=== PATIENT | female | born 1990 | race American Indian/Alaskan Native ===

== ENCOUNTER 2017-03-28 10:13 | Emergency (ER) | payer SELFPAY ==
[2017-03-28 11:31] VITALS: BP 122/83
[2017-03-28 12:40] LABS: Basophils % (Auto) 0.2 % (0.0-1.8); Eosinophils % (Auto) 0.8 % (0.0-4.3); Hematocrit 36.8 % (30.3-42.9); Hemoglobin 12.2 gm/dl (10.1-14.3); Mean Corpuscular HGB Conc 33 % (30-34); Mean Corpuscular Hemoglobin 34 pg (28-32); Mean Corpuscular Volume 102 fl (79-97); Platelet Count 199 K/mm3 (140-440); Red Blood Count 3.59 M/mm3 (3.65-5.03); White Blood Count 5.7 K/mm3 (4.5-11.0)
[2017-03-28 13:01] LABS: Alanine Aminotransferase 8 units/L (7-56); Albumin 4.4 g/dL (3.9-5); Albumin/Globulin Ratio 1.8 %; Alkaline Phosphatase 59 units/L (35-129); Anion Gap 15 mmol/L; BUN/Creatinine Ratio 22; Blood Urea Nitrogen 11 mg/dL (7-17); Calcium 8.8 mg/dL (8.4-10.2); Carbon Dioxide 26 mmol/L (22-30); Chloride 104.4 mmol/L (98-107); Glucose 96 mg/dL (65-100); Lipase 47 units/L (13-60); Potassium 4.1 mmol/L (3.6-5.0); Sodium 141 mmol/L (137-145); Total Protein 6.8 g/dL (6.3-8.2)
--- NOTE | 2017-03-28 14:07 | Emergency Department Report ---
HPI - General Chief Complaint: Abdominal Pain Time Seen by Provider: 03/28/17 13:56 - HPI HPI: Room 39 The patient is a 26-year-old female presenting with chief complaint of abdominal pain. The patient states for the past 5 days she says sharp lower abdominal pain intermittently. The patient states she had a bowel movement the following day but it did not change the pain. The patient states that one point she thought her constipation was the cause of her abdominal pain that she took a laxative but did not have abdominal. Patient missed the nausea but denies vomiting. Patient denies dysuria, hematuria, vaginal discharge or fever. Patient currently denies abdominal pain and states that it comes and goes. Location: Lower abdomen Duration: 5 days intermittently Quality: Sharp Severity: Currently 0/10 Modifying factors: [see above] Context: [see above] Mode of transportation: Unknown ED Past Medical Hx - Past Medical History Additional medical history: vaginal delivery 11-19-2015 - Surgical History Past Surgical History?: No Additional Surgical History: t&a - Family History Family history: no significant - Social History Smoking Status: Current Every Day Smoker (1/4 pack per day) Substance Use Type: None (denies illicit drug use), Alcohol (occasional) - Medications Home Medications: Home Medications Medication Instructions Recorded Confirmed Last Taken Type Docusate Sodium [Colace] 100 mg PO BID PRN #30 capsule 03/28/17 Unknown Rx Lactulose [Cephulac] 20 gm PO QDAY PRN #90 ml 03/28/17 Unknown Rx ED Review of Systems ROS: Stated complaint: SHARP PAIN IN ABD PAIN FOR FEW DAYS Other details as noted in HPI Comment: All other systems reviewed and negative Constitutional: denies: chills, fever Eyes: denies: eye pain, eye discharge, vision change ENT: denies: ear pain, throat pain Respiratory: denies: cough, shortness of breath, wheezing Cardiovascular: denies: chest pain, palpitations Endocrine: no symptoms reported Gastrointestinal: abdominal pain, nausea, constipation. denies: vomiting, diarrhea Genitourinary: denies: urgency, dysuria, discharge Musculoskeletal: denies: back pain, joint swelling, arthralgia Skin: denies: rash, lesions Neurological: denies: headache, weakness, paresthesias Psychiatric: denies: anxiety, depression Hematological/Lymphatic: denies: easy bleeding, easy bruising Physical Exam - Physical Exam Vital Signs: Vital Signs 03/28/17 11:28 Temperature 98.3 F Pulse Rate 78 Respiratory 16 Rate Blood Pressure 122/83 O2 Sat by Pulse 100 Oximetry Physical Exam: GENERAL: The patient is well-developed well-nourished female lying on stretcher not appearing to be in acute distress. [] HEENT: Normocephalic. Atraumatic. Extraocular motions are intact. Patient has moist mucous membranes. NECK: Supple. Trachea midline CHEST/LUNGS: Clear to auscultation. There is no respiratory distress noted. HEART/CARDIOVASCULAR: Regular. There is no tachycardia. There is no gallop rub or murmur. ABDOMEN: Abdomen is soft, with mild suprapubic discomfort to palpation. There is no rebound or guarding. Patient has normal bowel sounds. There is no abdominal distention. SKIN: There is no rash. There is no edema. There is no diaphoresis. NEURO: The patient is awake, alert, and oriented. The patient is cooperative. The patient has normal speech MUSCULOSKELETAL: There is no evidence of acute injury. ED Course Vital Signs 03/28/17 11:28 Temperature 98.3 F Pulse Rate 78 Respiratory 16 Rate Blood Pressure 122/83 O2 Sat by Pulse 100 Oximetry ED Medical Decision Making - Lab Data Result diagrams: 03/28/17 12:00 03/28/17 12:00 Laboratory Tests 03/28/17 03/28/17 03/28/17 12:00 12:00 13:37 WBC 5.7 RBC 3.59 L Hgb 12.2 Hct 36.8 MCV 102 H MCH 34 H MCHC 33 RDW 13.0 L Plt Count 199 Lymph % (Auto) 19.0 [place] % (Auto) 6.9 Eos % (Auto) 0.8 Baso % (Auto) 0.2 Lymph # 1.1 L [place] # 0.4 Eos # 0.0 Baso # 0.0 Seg Neutrophils % 73.1 H Seg Neutrophils # 4.2 Sodium 141 Potassium 4.1 Chloride 104.4 Carbon Dioxide 26 Anion Gap 15 BUN 11 Creatinine 0.5 L Estimated GFR > 60 BUN/Creatinine Ratio 22 Glucose 96 Calcium 8.8 Total Bilirubin 0.50 AST 13 ALT 8 Alkaline Phosphatase 59 Total Protein 6.8 Albumin 4.4 Albumin/Globulin Ratio 1.8 Lipase 47 Urine Color Yellow Urine Turbidity Clear Urine pH 7.0 Ur Specific Crystal 1.028 Urine Protein <15 mg/dl Urine Glucose (UA) Neg Urine Ketones Neg Urine Blood Neg Urine Nitrite Neg Urine Bilirubin Neg Urine Urobilinogen 4.0 Ur Leukocyte Esterase Neg Urine WBC (Auto) 2.0 Urine RBC (Auto) 2.0 U Epithel Cells (Auto) 6.0 Urine Mucus 2+ Urine HCG, Qual Negative - Radiology Data Radiology results: image reviewed (abdominal x-ray 2 view) interpreted by me: Abdominal x-ray 2 view large amount of stool in the descending colon and rectosigmoid colon. No free air. Nonobstructive bowel gas pattern - Differential Diagnosis , UTI, small bowel obstruction, constipation Critical care attestation.: If time is entered above; I have spent that time in minutes in the direct care of this critically ill patient, excluding procedure time. ED Disposition Clinical Impression: Constipation, Abdominal pain Disposition: DC- TO HOME OR SELFCARE Is pt being admited?: No Does the pt Need Aspirin: No Condition: Stable Instructions: Abdominal Pain (ED) Additional Instructions: Return to the emergency department immediately should you develop worsening symptoms, fever, inability to tolerate food or liquid or any other concerns. 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 Please follow him for further evaluation) Time of Disposition: 15:05
[2017-03-28 14:21] LABS: Bilirubin,Urine NEG (Negative); Blood,Urine NEG (Negative); Ketones,Urine NEG (Negative); Leukocyte Esterase,Urine NEG (Negative); Mucus,Urine 2+ /HPF; Nitrite,Urine NEG (Negative); Protein,Urine <15 mg/dL mg/dL (Negative)
[2017-03-28] MEDS ORDERED: CEPHULAC PO ONE (14:57)
--- NOTE | 2017-03-28 14:58 | XRay Report ---
ABDOMEN, 2 views: History: Constipation, lower abdominal pain. There is no evidence of free air beneath the diaphragms. The gas pattern within the abdomen is unremarkable. There is no evidence of bowel dilatation, significant air-fluid levels, or pathologic calcifications. Organ shadows are unremarkable. IMPRESSION: Unremarkable abdomen.
== END 2017-03-28 15:22 | disposition home or self-care (01) ==
LOC: ED 10:13
DX: K59.00 Constipation, unspecified (principal); R10.30 Lower abdominal pain, unspecified; R11.0 Nausea; F17.200 Nicotine dependence, unspecified, uncomplicated
CPT/HCPCS: 36415; 74020; 80053; 81001; 81025; 83690; 85025; 99284

== ENCOUNTER 2017-05-27 10:10 | Emergency (ER) | payer MEDICAID, OTHER ==
[2017-05-27 10:24] VITALS: BP 109/61
--- NOTE | 2017-05-27 11:15 | Emergency Department Report ---
Minor Respiratory - HPI Chief Complaint: Upper Respiratory Infection Stated Complaint: 6 WKS PREG. COLD/CP Time Seen by Provider: 05/27/17 11:07 Duration: 2 Days Pain Location: Throat, Chest, Other (SINUS) Severity: mild Minor Respiratory: Yes Rhinorrhea, Yes Able to Tolerate Fluids, No Sore Throat, No Ear Pain, No Cough, No Sick Contacts, No Hemoptysis, No Chest Pain, No Shortness of Breath, No Fever ED Review of Systems ROS: Stated complaint: 6 WKS PREG. COLD/CP Other details as noted in HPI Comment: All other systems reviewed and negative ENT: other (SINUS PAIN) Respiratory: cough (NON PROD) ED Past Medical Hx - Past Medical History Previous Medical History?: No Hx Hypertension: No Hx Congestive Heart Failure: No Hx Diabetes: No Hx Renal Disease: No Hx Seizures: No Hx Asthma: No Hx COPD: No Hx HIV: No Additional medical history: vaginal delivery 11-19-2015 - Surgical History Past Surgical History?: Yes Additional Surgical History: t&a. G3 P 2 A1. 6 W PREG - Social History Smoking Status: Never Smoker Substance Use Type: None - Medications Home Medications: Home Medications Medication Instructions Recorded Confirmed Last Taken Type Docusate Sodium [Colace] 100 mg PO BID PRN #30 capsule 03/28/17 Unknown Rx Lactulose [Cephulac] 20 gm PO QDAY PRN #90 ml 03/28/17 Unknown Rx Minor Respiratory Exam - Exam General: Vital signs noted. No distress. Alert and acting appropriately. HEENT: Yes Pharyngeal Erythema, Yes Moist Mucous Membranes, Yes Frontal Tenderness, Yes Maxillary Tenderness, No Pharyngeal Exudates, No Rhinorrhea, No Conjuctival Injection Ear: Neither TM Bulge, Neither TM Erythema, Neither EAC Pain, Neither EAC Discharge Neck: Yes Supple, No Adenopathy Lungs: Yes Good Air Exchange, No Wheezes, No Ronchi, No Stridor, No Cough, No Labored Respirations, No Retractions, No Use of Accessory Muscles, No Other Abnormal Lung Sounds Heart: Yes Regular, No Murmur Abdomen: No Tenderness, No Peritoneal Signs, No Normal Bowel Sounds Skin: Yes Edema, No Rash Neurologic: Alert and oriented, no deficits. Musculoskeletal: Unremarkable. ED Course Vital Signs 05/27/17 10:17 Temperature 98.2 F Pulse Rate 75 Respiratory 20 Rate Blood Pressure 109/61 O2 Sat by Pulse 100 Oximetry - Reevaluation(s) Reevaluation #1: 05/27/17 11:21 HERE W COLD S/S NO PURULENT DRAINAGE OR SPUTUM NO FEVER' NO VAG BLEED OR DC TICKLE IN THROAT WHEN LAYS DOWN SINUS TENDER LUNGS CTA ABD BENIGN SATS GOOD NO TACHY BP WNL NAD NON ILL NON TOXIC 12 LEAD EKG WNL PAIN IS WITH COUGHING LAST PREG UNREMARKABLE. HERE TO SEE WHAT SHE CAN TAKE OTC. EXAM SUGGESTS SINUSITIS ORIGIN NON TOXIC NOT INFECTIOUS APPEARING NOT CONCERNED FOR ACS/ PE BASED ON RISK FACTORS. DC HOME OB FOLLOW UP ED Medical Decision Making - Medical Decision Making SEE NOTE - Differential Diagnosis COLD S/S Critical care attestation.: If time is entered above; I have spent that time in minutes in the direct care of this critically ill patient, excluding procedure time. ED Disposition Clinical Impression: , Cold, Sinusitis Disposition: DC-01 TO HOME OR SELFCARE Is pt being admited?: No Does the pt Need Aspirin: No Condition: Stable Instructions: (ED), Sinusitis (ED) Additional Instructions: REST FLUIDS TYLENOL FOR PAIN OR FEVER FOLLOW UP WITH OB MD NURSE FOR FURTHER INSTRUCTION. WE WOULD BE CONCERNED WITH FEVER OR PURULENT SPUTUM. Time of Disposition: 11:13
== END 2017-05-27 11:34 | disposition home or self-care (01) ==
LOC: ED 10:10
DX: O99.511 Diseases of the respiratory system complicating pregnancy, first trimester (principal); J00 Acute nasopharyngitis [common cold]; J32.9 Chronic sinusitis, unspecified; Z3A.01 Less than 8 weeks gestation of pregnancy
CPT/HCPCS: 93005; 93010; 99282

== ENCOUNTER 2018-01-12 11:01 | Emergency (ER) | payer BC ==
[2018-01-12 12:01] LABS: Bilirubin,Urine NEG (Negative); Blood,Urine NEG (Negative); Color,Urine Yellow (Yellow); Mucus,Urine FEW /HPF; Protein,Urine <15 mg/dL mg/dL (Negative); Urobilinogen,Urine < 2.0 mg/dL (<2.0)
[2018-01-12 12:07] LABS: HCG Qualitative,Urine Negative (Negative)
[2018-01-12] MEDS ORDERED: MACROBID PO ONE (13:38)
--- NOTE | 2018-01-12 13:44 | Emergency Department Report ---
ED Female HPI - General Chief complaint: Urogenital-Female Stated complaint: VAGINAL PAIN Time Seen by Provider: 01/12/18 13:25 Source: patient Mode of arrival: Ambulatory Limitations: No Limitations - History of Present Illness Initial comments: This is a 27-year-old -[place] female who presents with vaginal irritation with intercourse x 2 days. Patient patient denies vaginal discharge or bleeding. Patient states there is some irritation with urination. She is feeling tingling sensation. She thought this could possibly be a kidney infection so she increase water intake. Patient states vaginal odor is fishy during intercourse. Denies fever, frequency, urgency, dysuria, vaginal discharge or bleeding. Onset/Timin -: days(s) Severity scale (0 -10): 0 Consistency: intermittent Improves with: none Worsens with: intercourse Are you Now?: No Last Menstrual Period: 12/30/17 EDC: 10/06/18 Associated Symptoms: denies other symptoms - Related Data Sexually active: Yes Previous Rx's Medication Instructions Recorded Last Taken Type Docusate Sodium [Colace] 100 mg PO BID PRN #30 capsule 03/28/17 Unknown Rx Lactulose [Cephulac] 20 gm PO QDAY PRN #90 ml 03/28/17 Unknown Rx metroNIDAZOLE [Metronidazole] 500 mg PO BID #14 tablet 01/12/18 Unknown Rx Allergies Allergy/AdvReac Type Severity Reaction Status Date / Time Sulfa (Sulfonamide Allergy Hives Verified 05/27/17 10:17 Antibiotics) ED Review of Systems ROS: Stated complaint: VAGINAL PAIN Other details as noted in HPI Constitutional: denies: chills, fever Respiratory: denies: cough, shortness of breath, wheezing Cardiovascular: denies: chest pain, palpitations Gastrointestinal: denies: abdominal pain, nausea, vomiting, diarrhea Genitourinary: other (vaginal irritation and fishy odor with intercourse). denies: urgency, dysuria, discharge Musculoskeletal: denies: back pain, joint swelling, arthralgia, myalgia Neurological: denies: headache, weakness, paresthesias Psychiatric: denies: anxiety, depression ED Past Medical Hx - Past Medical History Previous Medical History?: No Hx Hypertension: No Hx Congestive Heart Failure: No Hx Diabetes: No Hx Renal Disease: No Hx Seizures: No Hx Asthma: No Hx COPD: No Hx HIV: No Additional medical history: vaginal delivery 11-19-2015 - Surgical History Past Surgical History?: Yes Additional Surgical History: t&a - Social History Smoking Status: Current Some Day Smoker Substance Use Type: None - Medications Home Medications: Home Medications Medication Instructions Recorded Confirmed Last Taken Type Docusate Sodium [Colace] 100 mg PO BID PRN #30 capsule 03/28/17 Unknown Rx Lactulose [Cephulac] 20 gm PO QDAY PRN #90 ml 03/28/17 Unknown Rx metroNIDAZOLE [Metronidazole] 500 mg PO BID #14 tablet 01/12/18 Unknown Rx ED Physical Exam - General Limitations: No Limitations General appearance: alert, in no apparent distress - Respiratory Respiratory exam: Present: normal lung sounds bilaterally. Absent: respiratory distress - Cardiovascular Cardiovascular Exam: Present: regular rate, normal rhythm. Absent: systolic murmur, diastolic murmur, rubs, gallop - GI/Abdominal GI/Abdominal exam: Present: soft, normal bowel sounds. Absent: distended, tenderness, guarding, rebound, rigid, organomegaly, mass - External exam: Present: normal external exam Speculum exam: Present: vaginal discharge (white thin malodorous discharge). Absent: erythema, cervical discharge, vaginal bleeding, foreign body, tissue, laceration Bi-manual exam: Present: normal bi-manual exam - Back Exam Back exam: Present: normal inspection. Absent: CVA tenderness (R), CVA tenderness (L) - Neurological Exam Neurological exam: Present: alert, oriented X3 - Psychiatric Psychiatric exam: Present: normal affect, normal mood - Skin Skin exam: Present: warm, dry, intact, normal color. Absent: rash ED Course Vital Signs 01/12/18 11:04 Temperature 98.2 F Pulse Rate 72 Respiratory 18 Rate Blood Pressure 130/88 O2 Sat by Pulse 98 Oximetry ED Medical Decision Making - Medical Decision Making This is a 27-year-old -[place] female who presents with vaginal irritation and older 2 days. Patient was examined by me and screened by Dr. Villavicencio. Vitals are stable and in no acute distress. Urinalysis, urine hCG, and wet prep via pelvic exam obtained. Wet prep positive for clue cells, negative Trichomonas and yeast. Discharged home in stable condition. Discussed prevention options. F/U with PCP or Health Department. Critical care attestation.: If time is entered above; I have spent that time in minutes in the direct care of this critically ill patient, excluding procedure time. ED Disposition Clinical Impression: Bacterial vaginitis Disposition: - TO HOME OR SELFCARE Is pt being admited?: No Does the pt Need Aspirin: No Condition: Stable Instructions: Bacterial Vaginosis (ED) Additional Instructions: Avoid drinking alcohol while taking antibiotics and for 24 hours after completion. Avoid using frequent soaps, detergents, douching, and vaginal wipes to prevent recurrence. Continue safe sexual intercourse. Follow up with Primary Care Provider or health department. Prescriptions: metroNIDAZOLE [Metronidazole] 500 mg PO BID #14 tablet Referrals: [facility]– [place] 2[place] [Outside] - 3-5 Days [facility] [Outside] - 3-5 Days [facility] [Outside] - 3-5 Days Forms: Work/School Release Form(ED) Time of Disposition: 15:37 Print Language: OMANI
--- NOTE | 2018-01-12 13:46 | Emergency Department Report ---
Chief Complaint: Urogenital-Female Stated Complaint: VAGINAL PAIN Time Seen by Provider: 01/12/18 13:25 - HPI History of Present Illness: 27-year-old female presents to the emergency department with complaint of a 2 day history of vaginal irritation as well as a fishy and/or malodorous smell but she denies any vaginal discharge. She denies any abdominal or pelvic pain. She is not taking anything for her symptoms prior to presentation. - ROS Review of Systems: Positive for vaginal irritation Negative for vaginal discharge, vaginal bleeding, fever, pelvic or abdominal pain - Exam Vital Signs: Vital Signs 01/12/18 11:04 Temperature 98.2 F Pulse Rate 72 Respiratory 18 Rate Blood Pressure 130/88 O2 Sat by Pulse 98 Oximetry Physical Exam: Patient is awake and alert and in no acute distress. Heart and lung sounds are normal to auscultation. MSE screening note: Focused history and physical exam performed. Due to findings the following was ordered: Patient will be given a Macrobid for a mild urinary tract infection found on her urinalysis. She will be seen by the mid-level provider and may need a pelvic examination. ED Disposition for MSE Condition: Stable Referrals: PRIMARY CARE [Primary Care Provider] - 3-5 Days
[2018-01-12 15:51] VITALS: BP 118/68
== END 2018-01-12 15:50 | disposition home or self-care (01) ==
LOC: ED 11:01
DX: N76.0 Acute vaginitis (principal); F17.200 Nicotine dependence, unspecified, uncomplicated; Z88.2 Allergy status to sulfonamides
CPT/HCPCS: 81001; 81025; 87210; 99284

== ENCOUNTER 2018-09-08 14:25 | Emergency (ER) | payer BC, OTHER ==
[2018-09-08 14:46] VITALS: BP 134/71
[2018-09-08] MEDS ORDERED: ROCEPHIN IM ONE (14:54)
[2018-09-08] MEDS ORDERED: ZITHROMAX PO ONE (14:54)
[2018-09-08] MEDS ORDERED: XYLOCAINE 1% MPF 5 mL INFILTRATI ONE (14:54)
--- NOTE | 2018-09-08 14:55 | Emergency Department Report ---
ED Dysuria HPI - HPI Chief Complaint: Urogenital-Female Stated Complaint: IRRITATION WHEN URINE Time Seen by Provider: 09/08/18 14:51 Duration: 2 Days Severity: Mild Symptoms: Dysuria: Yes, Frequency: No, Suprapubic Pain: No, Flank Pain: No, Fever: No, Hematuria: No, Abdominal Pain: No, Previous UTI's: No Other History: known exposure to chlamyida. partner treated yesterday. ED Review of Systems ROS: Stated complaint: IRRITATION WHEN URINE Other details as noted in HPI Comment: All other systems reviewed and negative Constitutional: denies: chills Eyes: denies: eye pain ENT: denies: ear pain Respiratory: denies: orthopnea Cardiovascular: denies: chest pain Endocrine: denies: intolerance to cold Gastrointestinal: denies: nausea Genitourinary: as per HPI, discharge. denies: urgency, dysuria Musculoskeletal: denies: back pain Skin: denies: rash Neurological: denies: headache Psychiatric: denies: anxiety Hematological/Lymphatic: denies: as per HPI ED Past Medical Hx - Past Medical History Previous Medical History?: No Hx Hypertension: No Hx Congestive Heart Failure: No Hx Diabetes: No Hx Renal Disease: No Hx Seizures: No Hx Asthma: No Hx COPD: No Hx HIV: No Additional medical history: vaginal delivery 11-19-2015 - Surgical History Past Surgical History?: Yes Additional Surgical History: t&a - Family History Family history: no significant - Social History Smoking Status: Current Every Day Smoker Substance Use Type: Alcohol - Medications Home Medications: Home Medications Medication Instructions Recorded Confirmed Last Taken Type Docusate Sodium [Colace] 100 mg PO BID PRN #30 capsule 03/28/17 Unknown Rx Lactulose [Cephulac] 20 gm PO QDAY PRN #90 ml 03/28/17 Unknown Rx metroNIDAZOLE [Metronidazole] 500 mg PO BID #14 tablet 01/12/18 Unknown Rx Dysuria Exam - Exam General: Vital signs noted. No distress. Alert and acting appropriately. Exam: No Moist Mucous Membranes, No CVA Tenderness, No Abdominal Tenderness, No Rigidity or Guarding ED Course Vital Signs 09/08/18 14:46 Temperature 99.1 F Pulse Rate 95 H Respiratory 16 Rate Blood Pressure 134/71 [Right] O2 Sat by Pulse 100 Oximetry ED Medical Decision Making - Medical Decision Making known std exposure empiric treatment dc home with dc plan of care Vital Signs 09/08/18 14:46 Temperature 99.1 F Pulse Rate 95 H Respiratory 16 Rate Blood Pressure 134/71 [Right] O2 Sat by Pulse 100 Oximetry Critical care attestation.: If time is entered above; I have spent that time in minutes in the direct care of this critically ill patient, excluding procedure time. ED Disposition Clinical Impression: STD (sexually transmitted disease), STD exposure Disposition: DC-01 TO HOME OR SELFCARE Is pt being admited?: No Does the pt Need Aspirin: No Condition: Stable Instructions: Chlamydia Infection (ED), Sexually Transmitted Diseases (ED), Safe Sex (ED) Referrals: [facility] [Outside] - 3-5 Days Time of Disposition: 14:55
== END 2018-09-08 14:55 | disposition home or self-care (01) ==
LOC: ED 14:25
DX: A64 Unspecified sexually transmitted disease (principal); Z20.2 Contact with and (suspected) exposure to infections with a predominantly sexual mode of transmission; F17.200 Nicotine dependence, unspecified, uncomplicated
CPT/HCPCS: 99282; J0696

== ENCOUNTER 2018-12-24 22:12 | Emergency (ER) | payer SELFPAY ==
[2018-12-24 22:17] VITALS: BP 119/80
--- NOTE | 2018-12-24 22:23 | Event Note ---
ED Screening Note Date of service: 12/24/18 Time: 22:22 ED Screening Note: 28 y/o female comes in for a headache all day. 16 weeks preg. Has taking Tylenol without help. This initial assessment/diagnostic orders/clinical plan/treatment(s) is/are subject to change based on patients health status, clinical progression and re- assessment by fellow clinical providers in the ED. Further treatment and workup at subsequent clinical providers discretion. Patient/guardian urged not to elope from the ED as their condition may be serious if not clinically assessed and managed. Initial orders include:
== END 2018-12-25 01:15 | disposition left against medical advice (07) ==
LOC: ED 22:12
DX: O26.892 Other specified pregnancy related conditions, second trimester (principal); R51 Headache; Z3A.16 16 weeks gestation of pregnancy; Z53.21 Procedure and treatment not carried out due to patient leaving prior to being seen by health care provider

== ENCOUNTER 2020-09-11 14:28 | Emergency (ER) | payer MEDICAID | END 2020-09-11 16:53 | disposition left against medical advice (07) | LOC: ED 14:28 | DX: R05 Cough (principal); R06.00 Dyspnea, unspecified; R07.89 Other chest pain; Z53.21 Procedure and treatment not carried out due to patient leaving prior to being seen by health care provider ==